=== PATIENT | female | born 1995 | race Caucasian/White ===

== ENCOUNTER 2016-08-24 20:44 | Emergency (ER) | payer OTHER ==
[~2016-08-24] VITALS: Ht 162.6 cm; Wt 68.8 kg
[~2016-08-24 20:44] MED LIST: TYLETAB34 PO
[2016-08-24 21:06] VITALS: BP 116/69; PULSE 91; RESP 18; TEMP 98.9; O2SAT 96
[2016-08-24] MEDS ORDERED: IBUP800T23 PO (21:21)
[2016-08-24] MEDS ORDERED: AZIT250T3 PO (21:21)
--- NOTE | 2016-08-24 21:21 | PD ---
HPI Chief Complaint: ENT Complaint Time Seen by Provider: 21:15 Travel History International Travel<30 days: No Contact w/Intl Traveler<30days: No Traveled to known affect area: No History of Present Illness HPI 21 year old female presents emergency department for evaluation of sore throat times one day. Patient reports pain and discomfort with swallowing. Severity 6 out of 10. She has not tried any home remedies. She denies difficulty swallowing food or fluids. PFSH Past Medical History Medical History: Denies Significant Hx Hx Anticoagulant Therapy: No ADHD: No Arthritis: No Autoimmune Disease: No Bipolar Disorder: Yes Anxiety: Yes Depression: Yes Cancer: No Cardiovascular Problems: No Chemotherapy: No Chest Pain: No Congestive Heart Failure: No Cerebrovascular Accident: No Diabetes: No Diminished Hearing: No Endocrine: No Gastrointestinal Disorders: No Genitourinary: No Headaches: No Immune Disorder: No Implanted Vascular Access Dvce: No Kidney Stones: No Musculoskeletal: No Neurologic: No Psychiatric: Yes (Bipolar Disorder) Reproductive: No Respiratory: No Immunizations Current: Yes Migraines: No Renal Failure: No Seizures: No Thyroid Disease: No Ulcer: No ?: Not LMP: 2 WEEKS : 0 Past Surgical History Abdominal Surgery: No Cardiac Surgery: No Section: No Ear Surgery: No Endocrine Surgery: No Eye Surgery: No Genitourinary Surgery: No Gynecologic Surgery: No Hysterectomy: No Oral Surgery: No Thoracic Surgery: No Other Surgery: Yes (THROAT SURGERY TO REMOVE SKIN FLAP) Social History Alcohol Use: No Tobacco Use: Yes (/2 PPD) Substance Use: Yes (THC) Allergies-Medications (Allergen,Severity, Reaction): Coded Allergies: Amoxicillin (Verified Allergy, Severe, 08/24/16) Nut Tree (Verified Allergy, Severe, Anaphylaxis, 08/24/16) Penicillin (Verified Allergy, Severe, 08/24/16) Uncoded Allergies: peanut butter (Allergy, Severe, Swelling, 12/27/14) Reported Meds & Prescriptions Reported Meds & Active Scripts Active No Active Prescriptions or Reported Medications Review of Systems Except as stated in HPI: all other systems reviewed are Neg Physical Exam Narrative GENERAL: [Alert, well-appearing female] SKIN: Focused skin assessment warm/dry. HEAD: Atraumatic. Normocephalic. EYES: Pupils equal and round. No scleral icterus. No injection or drainage. ENT: No nasal bleeding or discharge. Mucous membranes pink and moist. Oropharynx erythema with mild tonsillar swelling and exudate. Normal phonation. NECK: Trachea midline. No JVD. Mild Submandibular lymphadenopathy CARDIOVASCULAR: Regular rate and rhythm. No murmur appreciated. RESPIRATORY: No accessory muscle use. Clear to auscultation. Breath sounds equal bilaterally. GASTROINTESTINAL: Abdomen soft, non-tender, nondistended. Hepatic and splenic margins not palpable. MUSCULOSKELETAL: No obvious deformities. No clubbing. No cyanosis. No edema. NEUROLOGICAL: Awake and alert. No obvious cranial nerve deficits. Motor grossly within normal limits. Normal speech. PSYCHIATRIC: Appropriate mood and affect; insight and judgment normal. Data Data Last Documented VS Vital Signs Date Time Temp Pulse Resp B/P Pulse Ox O2 Delivery O2 Flow Rate FiO2 08/24/16 21:10 18 08/24/16 21:06 98.9 91 116/69 96 MDM Medical Decision Making Medical Screen Exam Complete: Yes Emergency Medical Condition: Yes Differential Diagnosis Strep pharyngitis, viral pharyngitis and URI Narrative Course 21-year-old female with sore throat times one day. On exam she has oropharynx Erythema with mild tonsillar swelling with exudate. She will be treated for strep pharyngitis Diagnosis Primary Impression: Tonsillitis Referrals: Primary Care Physician Departure Forms: Tests/Procedures, Work Release Enter return to work date: Aug 26, 2016 Scripts Ibuprofen 800 Mg Bly094 Mg PO Q8H PRN (Pain/Inflammation) #30 TAB Prov:Moriah Orlando 08/24/16 Azithromycin 250 Mg [id number] Mg PO DIRECTED #6 TAB Ref 0 Take 2 tabs (500 mg) on day 1 then 1 tab daily x 4 days. Prov:Moriah Orlando 08/24/16 Disposition: 01 DISCHARGE HOME Condition: Stable Moriah Orlando Aug 24, 2016 21:21
== END 2016-08-24 21:25 | disposition home or self-care (01) ==
LOC: PHEFT 20:44
DX: J03.90 Acute tonsillitis, unspecified (principal); Z88.0 Allergy status to penicillin
CPT/HCPCS: 99283

== ENCOUNTER → 2017-04-17 | Day surgery (SDC) | payer OTHER ==
[~2017-04-17] VITALS: Ht 162.6 cm; Wt 67.0 kg
[~2017-04-17] MED LIST changes: +ACETAMINOPHEN 1000 MG/100 ML 100 ML IV ONE; +ALPR.5 PO; +ASPI1TAB93; +AZIT250T3 PO; +CHLORHEXIDINE GLUCONATE 2 % 1 PACK (2 CLOTHS) TOPICAL PRN; +DEXAMETHASONE SOD PHOS 4 MG/ML VIAL IV ONE; +FAMOTIDINE 20 MG/2 ML VIAL ONE; +GLYCOPYRROLATE 1 MG/5 ML SYRINGE IV PUSH ONE; +IBUP1TAB7 PO; +KETOROLAC TROMETHAMINE 30 MG/ML (IVP) VIAL IV PUSH ONE; +LACTATED RINGER'S 1000 ML IV PRN; +LAMI200T PO; +LIDOCAINE HCL 1% PF 5 ML SYRINGE OTHER ONE; +MEPERIDINE HCL 25 MG/ML VIAL ONE; +METOPROLOL TARTRATE 25 MG TAB PO PRN; +MIDAZOLAM HCL 2 MG/2 ML VIAL ONE; +MORPHINE SULFATE 2 MG/ML INJ ONE; +NEOSTIGMINE 5 MG/5 ML SYRINGE IV PUSH ONE; +NORG1TAB29 PO; +ONDANSETRON HCL 4 MG/2 ML VIAL IV PUSH ONE; +PERC5TAB12 PO; +POVIDONE IODINE 5% (ANTISEPSIS KIT) 4 APPLICATIONS EACH NARE PRN; +PROPOFOL 200 MG/20 ML AMP IV ONE; +ROCURONIUM INJ 50 MG/5 ML SYRINGE IV PUSH ONE; +SERO50TA PO; +SODIUM CHLORID 0.9% 500 ML IV PRN; -TYLETAB34 PO; +oxyCODONE/ACETAMINOPHEN 5 MG/325 MG TAB ONE
[2017-04-17 09:01] LABS: HEMATOCRIT 39.9 % (35.0-46.0); HEMOGLOBIN 13.2 GM/DL (11.6-15.3); MEAN CELL VOLUME 88.1 FL (80.0-100.0); MEAN CORPUSCULAR HEMOGLOBIN 29.1 PG (27.0-34.0); MEAN PLATELET VOLUME 9.6 FL (7.0-11.0); PLATELET COUNT 191 TH/MM3 (150-450); RED BLOOD COUNT 4.53 MIL/MM3 (4.00-5.30); RED CELL DISTRIBUTION WIDTH 12.1 % (11.6-17.2); WHITE BLOOD COUNT 4.9 TH/MM3 (4.0-11.0)
[2017-04-17 09:07] LABS: BILIRUBIN, URINE NEG (NEG); BLOOD, URINE TRACE (NEG); GLUCOSE,URINE NEG (NEG); KETONE, URINE NEG (NEG); NITRITE,URINE NEG (NEG); URINE LEUKOCYTE ESTERASE NEG (NEG)
[2017-04-17 09:31] LABS: URINE COLOR YELLOW (YELLW/STRAW)
[2017-04-17 09:34] LABS: AMORPHOUS SEDIMENT, URINE FEW; BACTERIA, URINE RARE /hpf
[2017-04-17 11:00] VITALS: PULSE 63
--- NOTE | 2017-04-17 11:23 | PD.OP ---
Operative Report Date of Surgery: Apr 17, 2017 Preoperative Diagnosis: (1) Deep dyspareunia (2) Secondary dysmenorrhea Postoperative Diagnosis: (1) Deep dyspareunia (2) Secondary dysmenorrhea Procedure: diagnostic laparoscopy Anesthesia: CORRINA Christie Surgeon: Kirti Genao Bow Maker Machine Tender(s): Easton Moise Surgeon: n/a Operation and Findings: Indications: This 21 y/o complains of progressive dysmenorrhea and deep dyspaeunia. She is worried about endometriosis since her mother had adenomyosis. Findings: Normal abdomen and pelvis to laparoscopic view without evidence of peritoneal disease. Photos taken. The uterine cervix was noted to be stenotic, and the uterus sounded to 8 cm. Procedure: The patient was brought to the OR, transferred to the OR table, and general anesthesia was induced followed by intubation. The patient was position in low stirrups in dorso-lithotomy position, prepped and draped. After time out, an open-sided speculum was placed in the vaginal and the cervix was grasped with a singe tooth tenaculum. The cervix was dilated with care when stenosis at the internal os was discovered. The uterus was then sounded and a Sarkis uterine manipulator was placed. After re-gloving a 5 mm incision was made in the umbilicus, an Veress needle was inserted for insufflation. After placement of a port and trochar through a 5mm incision in the umbilicus, the laparoscopic camera was used to survey the pelvis and abdomen in Trendelenburg position. No evidence of peritoneal disease was found. Photos were taken of RUQ, LUQ, anterior pelvis, cul-de-sac, and bilateral ovarian fossae and appendix. The procedure being complete, the pneumoperitoneum was released, the cannula removed, and the incision closed with Dermabond. The uterine manipulator was also removed, and the patient was returned to supine position. She was transferred to PACU awake and breathing on her own. Sponge, needle and instrument counts were correct. Kirti Genao MD Apr 17, 2017 11:23
[2017-04-17 13:15] VITALS: BP 95/51; PULSE 66; RESP 16; TEMP 97.7; O2SAT 100
== END | disposition home or self-care (01) ==
LOC: PHSDC 07:56
PROVIDERS: ATTEND Obstetrics & Gynecology
DX: N94.12 Deep dyspareunia (principal); N94.6 Dysmenorrhea, unspecified
CPT/HCPCS: 00790; 36415; 49320; 81001; 85027; J0131; J1100; J1885; J2175; J2250; J2270; J2405; J2710; J3010; J7120